=== PATIENT | male | born 1965 | race African-American/Black ===

== ENCOUNTER 2018-03-11 18:01 | Emergency (ER) | payer OTHER ==
[~2018-03-11] VITALS: Ht 182.9 cm; Wt 100.7 kg
[2018-03-11 18:10] VITALS: BP 146/94
--- NOTE | 2018-03-11 18:31 | NUR ---
PT AMBULATED TO ER BED 07
--- NOTE | 2018-03-11 18:45 | NUR ---
Note undone in EDM - 03/11/18 at 1857 by JUSTIN 52M BIB SELF WITH C/O HYPERDIPSIA AND HYPERDIPSIA X 3 DAYS AGO. PT REPORTS OF HISTORY OF DIABETES BUT CURRENTLY IS NO DIABETIC. PT DENIES ANY PAIN, CHEST PAIN, OR SOB. PT IS AOX4 WITH STEADY GAIT. RR ARE EVEN AND UNLABORED. PT IS TACHYCARDIAC. ER MD KERR AWARE OF PATIENT STATUS. PATIENT CHANGED INTO GOWN. NO ACUTE DISTRESS AT THIS TIME. WILL CONTINUE TO MONITOR.
--- NOTE | 2018-03-11 18:45 | NUR ---
52M BIB SELF WITH C/O HYPERDIPSIA AND HYPERURIA X 3 DAYS AGO. PT REPORTS OF HISTORY OF DIABETES BUT CURRENTLY IS NO DIABETIC. PT DENIES ANY PAIN, CHEST PAIN, OR SOB. PT IS AOX4 WITH STEADY GAIT. RR ARE EVEN AND UNLABORED. PT IS TACHYCARDIAC. ER MD KERR AWARE OF PATIENT STATUS. PATIENT CHANGED INTO GOWN. NO ACUTE DISTRESS AT THIS TIME. WILL CONTINUE TO MONITOR.
--- NOTE | 2018-03-11 19:19 | NUR ---
Pt report given to juliane early. Transfer of care at this time.
--- NOTE | 2018-03-11 19:20 | NUR ---
PT SITTING IN BED, AA&OX4, VSS, WILL FOLLOW ANY NEW ORDERS.
[2018-03-11] MEDS ORDERED: NACL 0.9% 1,000 ML IV ONE ×2 (19:32→21:05)
[2018-03-11 20:29] LABS: ANION GAP 12.4 (8-16); CARBON DIOXIDE 26.4 mmol/L (21-32); CREATININE 1.1 mg/dL (0.7-1.3); POTASSIUM 3.8 mmol/L (3.5-5.1); TOTAL BILIRUBIN 0.4 mg/dL (0.0-1.0)
[2018-03-11 20:30] LABS: BASOPHILS # (AUTO) 0.1 K/uL (0.00-0.22); BASOPHILS % (AUTO) 1.3 % (0.0-2.0); EOSINOPHILS # (AUTO) 0.1 K/uL (0-0.4); EOSINOPHILS % (AUTO) 2.4 % (0.0-4.0); HEMATOCRIT 37.4 % (36-52); LYMPHOCYTES # (AUTO) 1.2 K/uL (2.0-11.5); MEAN CORPUSCULAR HEMOGLOBIN 30 pg (27-31); MEAN CORPUSCULAR HGB CONC 35 g/dL (33-37); MEAN CORPUSCULAR VOLUME 86.5 fL (80-94); MONOCYTES # (AUTO) 0.2 K/uL (0.8-1.0); MONOCYTES % (AUTO) 4.7 % (1.7-9.3); NEUTROPHILS # (AUTO) 2.8 K/uL (1.8-7.7); NEUTROPHILS % (AUTO) 63.6 % (42.2-75.2); PLATELET COUNT (AUTO) 242 K/uL (140-450); RED BLOOD CELL COUNT(AUTO) 4.32 MIL/uL (4.20-6.10); WHITE BLOOD COUNT (AUTO) 4.3 K/uL (4.8-10.8)
--- NOTE | 2018-03-11 21:00 | NUR ---
IVF RUNNING, PT PENDING D/C WHEN FINGERSTICK IS BELOW 300, WILL CONTINUE TO MONITOR.
[2018-03-11] MEDS ORDERED: INSULIN REGULAR, HUMAN 100 UNIT/ML VIAL SUBQ ONE (21:05)
[2018-03-11 22:15] VITALS: BP 126/72
--- NOTE | 2018-03-11 22:15 | NUR ---
Patient discharged with v/s stable. Written and verbal after care instructions given and explained. Patient alert, oriented and verbalized understanding of instructions. Ambulatory with steady gait. All questions addressed prior to discharge. ID band removed. Patient advised to follow up with PMD. Rx of METFORMIN given. Patient educated on indication of medication including possible reaction and side effects. Opportunity to ask questions provided and answered.
== END 2018-03-11 22:15 | disposition home or self-care (01) ==
LOC: MED 18:01
DX: E11.65 Type 2 diabetes mellitus with hyperglycemia (principal); L23.9 Allergic contact dermatitis, unspecified cause
CPT/HCPCS: 36415; 80053; 81002; 83690; 85025; 96360; 96361; 99284; J1815; J7030